=== PATIENT | male | born 1950 | race Caucasian/White ===

== ENCOUNTER → 2017-01-07 | Outpatient (CLI) | payer OTHER ==
--- NOTE | 2017-01-08 11:10 | CARD ---
APPROVED REPORT EXAM: Two-dimensional and M-mode echocardiogram with Doppler and color Doppler. Other Information Quality : Average Rhythm : NSR INDICATION Mitral Valve Disease 2D DIMENSIONS RVDd3.6 (2.9-3.5cm)Left Atrium(2D)4.1 (1.6-4.0cm) IVSd1.1 (0.7-1.1cm)Aortic Root(2D)3.1 (2.0-3.7cm) LVDd4.8 (3.9-5.9cm)LVOT Diameter2.0 (1.8-2.4cm) PWd1.1 (0.7-1.1cm)LVDs2.5 (2.5-4.0cm) FS (%) 29.3 %SV88.7 ml LVEF(%)60.6 (>50%) Aortic Valve AoV Peak Juan Francisco.152.4cm/sAoV VTI31.4cm AO Peak GR.9.3mmHgLVOT Peak Juan Francisco.159.2cm/s LVOT VTI 35.81cmAO Mean GR.5mmHg DEENA (VMAX)3.53eu0HYX (VTI)3.65cm2 AI P 1/2 Ijwb470ox Mitral Valve MV E Nwekebix57.5cm/sMV E Peak Gr.90mmHg MV DECEL FBZQ616ipBJ A Yzsjwwcy32.8cm/s MV E Mean Gr.2mmHgMV OUH82wg E/A Ratio1.2MV A Hnmhjfwp854sa MVA (PHT)3.49cm2 TDI E/Lateral E'6.5E/Medial E'7.7 Pulmonary Valve PV Peak Tsupklur377.3cm/sPV Peak Grad.5mmHg RVOT VTI26.0cm Tricuspid Valve TR P. Dgepgsev775sz/sRAP RFJHNFOD0keBy TR Peak Gr.44glNfYGBH79uhKm Pulmonary Vein S1 Bfnbhymh91.3cm/sD2 Lskhwwgl26.4cm/s LEFT VENTRICLE The left ventricle is normal size. There is normal left ventricular wall thickness. Left ventricle sy stolic function is normal. The Ejection Fraction is 60-65%. There is normal LV segmental wall motion. The left ventricular diastolic function and filling is normal for age. There is no ventricular septa l defect visualized. RIGHT VENTRICLE The right ventricle is normal size. The right ventricular systolic function is normal. ATRIA The left atrium is borderline dilated. The right atrium size is normal. The interatrial septum is int act with no evidence for an atrial septal defect or patent foramen ovale as noted on 2-D or Doppler i romulo. AORTIC VALVE The aortic valve is normal in structure and function. The aortic valve is trileaflet. Doppler and Col or Flow revealed mild aortic regurgitation. There is no significant aortic valvular stenosis. MITRAL VALVE The mitral valve has restricted leaflet motion in the posterior leafelet. Cannot rule out prolapse of the posterior leaflet. There is no mitral valve stenosis. Doppler and Color Flow revealed moderate t o severe eccentric anteriorly directed mitral regurgitation. TRICUSPID VALVE The tricuspid valve is normal in structure and function. Doppler and Color Flow revealed mild tricusp id regurgitation. The PA pressure was estimated at 29 mmHg. There is no tricuspid valve stenosis. PULMONIC VALVE The pulmonic valve is not well visualized. Doppler and Color Flow revealed no pulmonic valvular regur gitation. There is no pulmonic valvular stenosis. GREAT VESSELS The aortic root is normal in size. Normal pulmonary venous flow (Doppler). The IVC is normal in size and collapses >50% with inspiration. PERICARDIAL EFFUSION There is no evidence of significant pericardial effusion. Critical Notification Critical Value: No <Conclusion> Left ventricle systolic function is normal. The Ejection Fraction is 60-65%. There is normal LV segmental wall motion. The left atrium is borderline dilated. Doppler and Color Flow revealed mild aortic regurgitation.
== END | disposition home or self-care (01) ==
LOC: ECHO 08:33
PROVIDERS: ATTEND Internal Medicine Cardiovascular Disease
DX: I08.3 Combined rheumatic disorders of mitral, aortic and tricuspid valves (principal)
CPT/HCPCS: 93306

== ENCOUNTER → 2018-01-27 | Outpatient (CLI) | payer OTHER | END | disposition home or self-care (01) | LOC: ECHO 07:50 | DX: I08.3 Combined rheumatic disorders of mitral, aortic and tricuspid valves (principal) | CPT/HCPCS: 93306 ==

== ENCOUNTER → 2018-07-29 | Outpatient (CLI) | payer OTHER ==
--- NOTE | 2018-07-29 09:51 | CARD ---
MR#: [id number] Date of Study: 07/29/2018 Ordering Physician: SIXTO STANLEY, Referring Physician: SIXTO STANLEY, Tech: Shavon Shultz [facility] [place] APPROVED REPORT EXAM: Two-dimensional and M-mode echocardiogram with Doppler and color Doppler. Other Information Quality : GoodHR: 53bpm Rhythm : Bradycardia INDICATION Mitral Valve Disease 2D DIMENSIONS RVDd3.0 (2.9-3.5cm)Left Atrium(2D)4.9 (1.6-4.0cm) IVSd1.1 (0.7-1.1cm)Aortic Root(2D)3.3 (2.0-3.7cm) LVDd4.7 (3.9-5.9cm)LVOT Diameter2.0 (1.8-2.4cm) PWd0.8 (0.7-1.1cm)LVDs3.0 (2.5-4.0cm) FS (%) 36.2 %SV66.7 ml LVEF(%)65.0 (>50%) M-Mode DIMENSIONS Left Atrium(MM)4.68 (2.5-4.0cm)Aortic Root3.70 (2.2-3.7cm) Aortic Valve AoV Peak Juan Francisco.186.5cm/sAoV VTI43.2cm AO Peak GR.13.9mmHgLVOT Peak Juan Francisco.137.8cm/s AO Mean GR.7mmHgAVA (VMAX)2.25cm2 DEENA (VTI)2.79xr4EW P 1/2 Atvs149uf Mitral Valve MV E Gedcigge82.9cm/sMV E Peak Gr.74mmHg MV DECEL EWHT100rdOJ A Zeqhuwqq91.3cm/s MV E Mean Gr.1mmHgE/A Ratio1.1 MV A Lddawlju073ac Pulmonary Valve PV Peak Tnpkhjmg860.5cm/s Tricuspid Valve TR P. Bnkbmobp656dk/sRAP XOUIPKAY9diBc TR Peak Gr.06fwMlZNSL92keIx Pulmonary Vein S1 Lyxbmyua50.6cm/sD2 Qflgllmh22.8cm/s PVa zwfkibvf751hvfb LEFT VENTRICLE The left ventricle is normal size. There is normal left ventricular wall thickness. The left ventricu lar systolic function is normal. The Ejection Fraction is 60-65%. There is normal LV segmental wall m otion. RIGHT VENTRICLE The right ventricle is normal size. There is normal right ventricular wall thickness. The right ventr icular systolic function is normal. ATRIA The left atrium is mildly dilated. The right atrium is mildly dilated. The atrial septum is mildly an eurysmal. AORTIC VALVE The aortic valve is calcified but opens well. The aortic valve is trileaflet. Doppler and Color Flow revealed mild aortic regurgitation. There is no significant aortic valvular stenosis. MITRAL VALVE The mitral valve is mildly thickened. Possible prolapse versus flail posterior leaflet. There is no e vidence of mitral valve prolapse. There is no mitral valve stenosis. The mitral regurgitant jet is ec centrically anteriorily directed. Doppler and Color Flow revealed at least moderate mitral regurgitat ion. TRICUSPID VALVE The tricuspid valve is normal in structure and function. Doppler and Color Flow revealed trace tricus pid regurgitation. The PA pressure was estimated at 29 mmHg. There is no tricuspid valve prolapse or vegetation. There is no tricuspid valve stenosis. PULMONIC VALVE The pulmonary valve is normal in structure and function. Doppler and Color Flow revealed no pulmonic valvular regurgitation. There is no pulmonic valvular stenosis. GREAT VESSELS The aortic root is normal in size. The IVC is normal in size and collapses >50% with inspiration. PERICARDIAL EFFUSION There is no evidence of significant pericardial effusion. Critical Notification Critical Value: No <Conclusion> The left ventricular systolic function is normal. The Ejection Fraction is 60-65%. There is normal LV segmental wall motion. The left atrium is mildly dilated. Mild aortic regurgitation. Possible prolapse versus flail posterior mitral valve leaflet. Eccentrically anteriorily directed mitral regurgitation jet, probably moderate in severity. Trace tricuspid regurgitation. The PA pressure was estimated at 29 mmHg. There is no evidence of significant pericardial effusion. Signed by : Ben Mota, Electronically Approved : 07/29/2018 09:49:00
== END | disposition home or self-care (01) ==
LOC: ECHO 07:53
PROVIDERS: ATTEND Internal Medicine Cardiovascular Disease
DX: I08.0 Rheumatic disorders of both mitral and aortic valves (principal)
CPT/HCPCS: 93306

== ENCOUNTER → 2019-02-08 | Outpatient (CLI) | payer OTHER ==
--- NOTE | 2019-02-08 09:18 | CARD ---
MR#: [id number] Date of Study: 02/08/2019 Ordering Physician: SIXTO STANLEY, Referring Physician: SIXTO STANLEY, Tech: Shavon Shultz [facility] APPROVED REPORT EXAM: Two-dimensional and M-mode echocardiogram with Doppler and color Doppler. Other Information Quality : GoodHR: 50bpm Rhythm : Bradycardia INDICATION Mitral Valve Disease 2D DIMENSIONS RVDd3.0 (2.9-3.5cm)Left Atrium(2D)4.7 (1.6-4.0cm) IVSd1.1 (0.7-1.1cm)Aortic Root(2D)3.2 (2.0-3.7cm) LVDd5.0 (3.9-5.9cm)LVOT Diameter1.9 (1.8-2.4cm) PWd0.9 (0.7-1.1cm)LVDs3.6 (2.5-4.0cm) FS (%) 29.4 %SV67.7 ml LVEF(%)56.0 (>50%) M-Mode DIMENSIONS Left Atrium(MM)4.60 (2.5-4.0cm)Aortic Root3.30 (2.2-3.7cm) Aortic Valve AoV Peak Juan Francisco.144.6cm/sAoV VTI34.4cm AO Peak GR.8.4mmHgLVOT Peak Juan Francisco.106.3cm/s AO Mean GR.4mmHgAVA (VMAX)2.18cm2 DEENA (VTI)2.31xo0UF P 1/2 Wnow183vz Mitral Valve MV E Dioadfrl62.2cm/sMV E Peak Gr.3mmHg MV DECEL HWQG459lhJL A Laxjizyh91.3cm/s MV E Mean Gr.1mmHgE/A Ratio1.2 Pulmonary Valve PV Peak Flvcbuxi053.6cm/s Tricuspid Valve TR P. Utsqlyto286uz/sRAP JZXIZVYN0jbOg TR Peak Gr.10ekKlFENP24icOe LEFT VENTRICLE The left ventricle is normal size. There is normal left ventricular wall thickness. The left ventricu lar systolic function is normal and the ejection fraction is within normal range. The Ejection Fracti on is 55-60%. There is normal LV segmental wall motion. Transmitral Doppler flow pattern is Grade II- pseudonormal filling dynamics. RIGHT VENTRICLE The right ventricle is normal size. There is normal right ventricular wall thickness. The right ventr icular systolic function is normal. ATRIA The left atrium is mildly dilated. The right atrium is mildly dilated. The interatrial septum is inta ct with no evidence for an atrial septal defect or patent foramen ovale as noted on 2-D or Doppler im aging. AORTIC VALVE The aortic valve is thickened but opens well. The aortic valve is trileaflet. Doppler and Color Flow revealed mild aortic regurgitation. There is no significant aortic valvular stenosis. There is no aor tic valvular vegetation. MITRAL VALVE The mitral valve is thickened but opens well with a possible flail posterior leaflet. There is no clara dence of mitral valve prolapse. There is no mitral valve stenosis. Doppler and Color-flow revealed mo derate to severe mitral regurgitation that is eccentrically anteriorily directed. TRICUSPID VALVE The tricuspid valve is normal in structure and function. Doppler and Color Flow revealed mild tricusp id regurgitation. There is mild pulmonary hypertension. The PA pressure was estimated at 33 mmHg. The re is no tricuspid valve prolapse or vegetation. There is no tricuspid valve stenosis. PULMONIC VALVE Doppler and Color Flow revealed trace pulmonic valvular regurgitation. There is no pulmonic valvular stenosis. GREAT VESSELS The aortic root is normal in size. The ascending aorta is Mildly dilated at 3.6cm. The IVC is normal in size and collapses >50% with inspiration. PERICARDIAL EFFUSION There is no evidence of significant pericardial effusion. Critical Notification Critical Value: No <Conclusion> The left ventricular systolic function is normal and the ejection fraction is within normal range. Th e Ejection Fraction is 55-60%. There is normal LV segmental wall motion. Doppler and Color Flow revealed mild aortic regurgitation. Doppler and Color-flow revealed moderate to severe mitral regurgitation that is eccentrically anterio rily directed. Doppler and Color Flow revealed mild tricuspid regurgitation. There is mild pulmonary hypertension. T he PA pressure was estimated at 33 mmHg. The ascending aorta is Mildly dilated at 3.6cm. Signed by : Sixto Stanley, Electronically Approved : 02/08/2019 09:18:06
== END | disposition home or self-care (01) ==
LOC: ECHO 07:55
PROVIDERS: ATTEND Internal Medicine Cardiovascular Disease
DX: I08.3 Combined rheumatic disorders of mitral, aortic and tricuspid valves (principal); I27.20 Pulmonary hypertension, unspecified
CPT/HCPCS: 93306

== ENCOUNTER → 2020-02-01 | Outpatient (CLI) | payer OTHER ==
--- NOTE | 2020-02-01 08:53 | CARD ---
MR#: [id number] Date of Study: 02/01/2020 Ordering Physician: SIXTO STANLEY, Referring Physician: SIXTO STANLEY, Tech: Chasity Robbins [facility] APPROVED REPORT EXAM: Two-dimensional and M-mode echocardiogram with Doppler and color Doppler. Other Information Quality : Good INDICATION Mitral Insufficiency 2D DIMENSIONS RVDd3.1 (2.9-3.5cm)Left Atrium(2D)4.0 (1.6-4.0cm) IVSd0.9 (0.7-1.1cm)Aortic Root(2D)3.1 (2.0-3.7cm) LVDd5.5 (3.9-5.9cm)LVOT Diameter2.1 (1.8-2.4cm) PWd0.8 (0.7-1.1cm)LVDs3.9 (2.5-4.0cm) FS (%) 29.1 %SV81.5 ml LVEF(%)55.2 (>50%) Aortic Valve AoV Peak Juan Francisco.220.9cm/sAoV VTI42.5cm AO Peak GR.19.5mmHgLVOT Peak Juan Francisco.174.2cm/s AO Mean GR.11mmHgAVA (VMAX)2.73cm2 DEENA (VTI)2.19tv4VH P 1/2 Fiko296gj Mitral Valve MV E Ejvncibw25.0cm/sMV DECEL DCWP730pg MV A Arvhfebp46.9cm/sE/A Ratio0.7 Tricuspid Valve TR P. Mdxnysms865qj/sRAP SQEORPQR8niXg TR Peak Gr.01qpIcXQQF55gvSu Pulmonary Vein S1 Xctiwuqo50.8cm/sD2 Taaefame85.2cm/s LEFT VENTRICLE The left ventricle is normal size. There is normal left ventricular wall thickness. The left ventricu lar systolic function is normal and the ejection fraction is within normal range. The Ejection Fracti on is 55-60%. There is normal LV segmental wall motion. Transmitral Doppler flow pattern is Grade I-a bnormal relaxation pattern. RIGHT VENTRICLE The right ventricle is normal size. The right ventricular systolic function is normal. ATRIA The left atrium is mildly dilated. The right atrium size is normal. The atrial septum is aneurysmal b ut there is no atrial septal defect visualized. AORTIC VALVE The aortic valve is calcified but opens well. Doppler and Color Flow revealed moderate aortic regurgi tation. There is no significant aortic valvular stenosis. MITRAL VALVE The mitral valve is calcified with restricted posterior leaflet. There is no evidence of mitral valve prolapse. There is no mitral valve stenosis. Doppler and Color-flow revealed moderate to severe ecce ntric mitral regurgitation. TRICUSPID VALVE The tricuspid valve is normal in structure and function. Doppler and Color Flow revealed trace tricus pid regurgitation. The PA pressure was estimated at 32 mmHg. There is no tricuspid valve stenosis. PULMONIC VALVE The pulmonary valve is normal in structure and function. Doppler and Color Flow revealed trace to mil d pulmonic valvular regurgitation. There is no pulmonic valvular stenosis. GREAT VESSELS The aortic root is normal in size. The ascending aorta is not well seen. The IVC is normal in size an d collapses >50% with inspiration. PERICARDIAL EFFUSION There is no evidence of significant pericardial effusion. Critical Notification Critical Value: No <Conclusion> The left ventricular systolic function is normal and the ejection fraction is within normal range. Th e Ejection Fraction is 55-60%. There is normal LV segmental wall motion. Doppler and Color Flow revealed moderate aortic regurgitation. Doppler and Color-flow revealed moderate to severe eccentric mitral regurgitation. Signed by : Sixto Stanley, Electronically Approved : 02/01/2020 08:52:34
== END | disposition home or self-care (01) ==
LOC: ECHO 07:52
PROVIDERS: ATTEND Internal Medicine Cardiovascular Disease
DX: I08.8 Other rheumatic multiple valve diseases (principal)
CPT/HCPCS: 93306

== ENCOUNTER → 2020-10-25 | Outpatient (CLI) | payer OTHER ==
--- NOTE | 2020-10-25 17:30 | CARD ---
MR#: [id number] Date of Study: 10/25/2020 Ordering Physician: SIXTO STANLEY, Referring Physician: SIXTO STANLEY, Tech: Chasity Robbins [facility] APPROVED REPORT EXAM: Two-dimensional and M-mode echocardiogram with Doppler and color Doppler. Other Information Quality : Good INDICATION Aortic Insufficiency 2D DIMENSIONS RVDd3.7 (2.9-3.5cm)Left Atrium(2D)4.1 (1.6-4.0cm) IVSd0.6 (0.7-1.1cm)Aortic Root(2D)2.9 (2.0-3.7cm) LVDd5.5 (3.9-5.9cm)LVOT Diameter2.0 (1.8-2.4cm) PWd0.7 (0.7-1.1cm)LVDs4.1 (2.5-4.0cm) FS (%) 26.8 %SV77.9 ml LVEF(%)60.0 (>50%) Aortic Valve AoV Peak Juan Francisco.154.0cm/sAoV VTI27.1cm AO Peak GR.9.5mmHgLVOT Peak Juan Francisco.145.4cm/s LVOT VTI 27.39cmAO Mean GR.4mmHg DEENA (VMAX)3.64ly0VQO (VTI)3.34cm2 AI P 1/2 Efwz906al Mitral Valve MV E Clqfrpwq92.1cm/sMV DECEL HUTB589my MV A Lhxfqyah21.6cm/sMV TUX60ji E/A Ratio0.7MVA (PHT)3.39cm2 TDI E/Lateral E'5.9E/Medial E'8.5 Tricuspid Valve TR P. Adhdlphn857ng/sRAP IHPTDHTE0skWy TR Peak Gr.81fbCdPFTC57fvMm Pulmonary Vein S1 Ttuyfduu26.6cm/sD2 Behrznlw46.5cm/s LEFT VENTRICLE The left ventricle is normal size. There is normal left ventricular wall thickness. The left ventricu lar systolic function is normal and the ejection fraction is within normal range. The Ejection Fracti on is 55-60%. There is normal LV segmental wall motion. Transmitral Doppler flow pattern is Grade I-a bnormal relaxation pattern. RIGHT VENTRICLE The right ventricle is normal size. The right ventricular systolic function is normal. ATRIA The left atrium is mildly dilated. The right atrium size is normal. The interatrial septum is intact with no evidence for an atrial septal defect or patent foramen ovale as noted on 2-D or Doppler imagi ng. AORTIC VALVE The aortic valve is calcified but opens well. Doppler and Color Flow revealed moderate aortic regurgi tation. There is no significant aortic valvular stenosis. MITRAL VALVE The mitral valve is calcified but opens well. A mild mitral valve prolapse of the posterior leaflet i s present. There is no mitral valve stenosis. Doppler and Color-flow revealed mild to moderate eccent padmini mitral regurgitation. TRICUSPID VALVE The tricuspid valve is normal in structure and function. Doppler and Color Flow revealed trace tricus pid regurgitation. The PA pressure was estimated at 27 mmHg. There is no tricuspid valve stenosis. PULMONIC VALVE The pulmonic valve is not well visualized. Doppler and Color Flow revealed no pulmonic valvular regur gitation. There is no pulmonic valvular stenosis. GREAT VESSELS The aortic root is normal in size. The ascending aorta is not well seen. The IVC is normal in size an d collapses >50% with inspiration. PERICARDIAL EFFUSION There is no evidence of significant pericardial effusion. Critical Notification Critical Value: No <Conclusion> The left ventricle is normal size. The left ventricular systolic function is normal and the ejection fraction is within normal range. The Ejection Fraction is 55-60%. Doppler and Color Flow revealed moderate aortic regurgitation. There is no significant aortic valvular stenosis. Doppler and Color-flow revealed mild to moderate eccentric mitral regurgitation. Doppler and Color Flow revealed trace tricuspid regurgitation. The PA pressure was estimated at 27 mmHg. Signed by : Pawel Allen MD Electronically Approved : 10/25/2020 17:29:38
== END ==
LOC: ECHO 10:09
PROVIDERS: ATTEND Internal Medicine Cardiovascular Disease
DX: I08.0 Rheumatic disorders of both mitral and aortic valves (principal)
CPT/HCPCS: 93306

== ENCOUNTER → 2021-11-04 | Outpatient (CLI) | payer OTHER ==
--- NOTE | 2021-11-06 09:39 | CARD ---
MR#: [id number] Date of Study: 11/04/2021 Ordering Physician: SIXTO STANLEY, Referring Physician: SIXTO STANLEY, Tech: Deandre Noble [facility] APPROVED REPORT EXAM: Two-dimensional and M-mode echocardiogram with Doppler and color Doppler. Other Information Quality : AverageHR: 57bpm Rhythm : NSR INDICATION Aortic Valve Disease 2D DIMENSIONS Left Atrium(2D)4.4 (1.6-4.0cm)IVSd0.9 (0.7-1.1cm) Aortic Root(2D)3.5 (2.0-3.7cm)LVDd4.9 (3.9-5.9cm) LVOT Diameter2.0 (1.8-2.4cm)PWd1.0 (0.7-1.1cm) LA Dutdyo42 (18-58mL)LVDs2.8 (2.5-4.0cm) FS (%) 42.4 %SV82.8 ml Aortic Valve AoV Peak Juan Francisco.134.4cm/sAoV VTI24.8cm AO Peak GR.7.2mmHgLVOT Peak Juan Francisco.129.1cm/s LVOT VTI 25.93cmAO Mean GR.3mmHg DEENA (VMAX)2.28ig7KQJ (VTI)3.42cm2 AI P 1/2 Iyiy704hm Mitral Valve MV E Faboesbm24.6cm/sMV DECEL BJNZ647pk MV A Rhwzwcri38.7cm/sMV LSN27iw E/A Ratio0.6MVA (PHT)5.09cm2 TDI E/Lateral E'7.0E/Medial E'8.7 Pulmonary Valve PV Peak Nhtwwqmp163.2cm/sPV Peak Grad.6mmHg Tricuspid Valve TR P. Efetlzjn085kf/sTR Peak Gr.23mmHg Pulmonary Vein S1 Cwmcysjy40.0cm/sD2 Emrrzkkr84.0cm/s LEFT VENTRICLE The left ventricle is normal size. There is normal left ventricular wall thickness. The left ventricu lar systolic function is normal and the ejection fraction is within normal range. Left ventricular ej ection fraction of 50-55%. There is normal LV segmental wall motion. The left ventricular diastolic f unction and filling is normal for age. There is no ventricular septal defect visualized. There is no left ventricular aneurysm. There is no mass noted in the left ventricle. RIGHT VENTRICLE The right ventricle is normal size. There is normal right ventricular wall thickness. The right ventr icular systolic function is normal. ATRIA The left atrium is mildly dilated. The right atrium size is normal. The interatrial septum is intact with no evidence for an atrial septal defect or patent foramen ovale as noted on 2-D or Doppler imagi ng. AORTIC VALVE The aortic valve is mildly thickened. Doppler and Color Flow revealed mild aortic regurgitation. Ther e is no significant aortic valvular stenosis. There is no aortic valvular vegetation. MITRAL VALVE The mitral valve is mildly thickened. There is no evidence of mitral valve prolapse. There is no mitr al valve stenosis. Doppler and Color-flow revealed mild mitral regurgitation. TRICUSPID VALVE The tricuspid valve is normal in structure and function. Doppler and Color Flow revealed trace tricus pid regurgitation. There is no tricuspid valve prolapse or vegetation. There is no tricuspid valve st enosis. PULMONIC VALVE The pulmonary valve is normal in structure and function. Doppler and Color Flow revealed no pulmonic valvular regurgitation. There is no pulmonic valvular stenosis. GREAT VESSELS The aortic root is normal in size. The ascending aorta is normal in size. The pulmonary artery is nor mal. The IVC is normal in size and collapses >50% with inspiration. PERICARDIAL EFFUSION There is no pleural effusion. There is no evidence of significant pericardial effusion. Critical Notification Critical Value: No <Conclusion> The left ventricle is normal size. The left ventricular systolic function is normal and the ejection fraction is within normal range. Left ventricular ejection fraction of 50-55%. Doppler and Color Flow revealed mild aortic regurgitation. There is no significant aortic valvular stenosis. Doppler and Color-flow revealed mild mitral regurgitation. Doppler and Color Flow revealed trace tricuspid regurgitation. Signed by : Pawel Allen MD Electronically Approved : 11/06/2021 09:39:02
== END ==
LOC: ECHO 10:49
PROVIDERS: ATTEND Internal Medicine Cardiovascular Disease
DX: I08.0 Rheumatic disorders of both mitral and aortic valves (principal)
CPT/HCPCS: 93306; C8929